=== PATIENT | male | born 1945 | race Caucasian/White ===

== ENCOUNTER 2020-07-08 10:10 | Observation (INO) ==
--- NOTE | 2020-06-13 13:55 | PAT Medication Instructions ---
Medication Instructions Date of Service June 13, 2020 Home Medications amlodipine 2.5 mg tablet 2.5 mg PO QAM aspirin 81 mg tablet,delayed release 81 mg PO QAM atorvastatin 20 mg tablet 20 mg PO BID folic acid 20 mg capsule 20 mg PO QAM furosemide 20 mg tablet 20 mg PO QAM methotrexate sodium 2.5 mg tablet 15 mg PO WK metoprolol tartrate 50 mg tablet 50 mg PO BID citalopram 10 mg PO QAM pxereyja-njf-DK-lycopen-lutein [Centrum Silver Men] 1 tab PO QAM vitamins A,C,N-ycvb-jwcisl [PreserVision AREDS] 1 cap PO BID warfarin 10 - 15 mg PO UD ASK your prescriber and surgeon methotrexate sodium 2.5 mg tablet 15 mg PO WK warfarin 10 - 15 mg PO UD STOP taking 2 weeks before surgery If surgery is within 2 weeks, stop taking as soon as possible. cjjlqfgq-gjj-CT-lycopen-lutein [Centrum Silver Men] 1 tab PO QAM vitamins A,C,C-hjwm-kcavhd [PreserVision AREDS] 1 cap PO BID DO NOT take the morning of surgery folic acid 20 mg capsule 20 mg PO QAM furosemide 20 mg tablet 20 mg PO QAM Take morning of surgery With a small sip of water, OTHERWISE NOTHING TO EAT OR DRINK AFTER MIDNIGHT: amlodipine 2.5 mg tablet 2.5 mg PO QAM aspirin 81 mg tablet,delayed release 81 mg PO QAM atorvastatin 20 mg tablet 20 mg PO BID metoprolol tartrate 50 mg tablet 50 mg PO BID citalopram 10 mg PO QAM Take evening before surgery atorvastatin 20 mg tablet 20 mg PO BID metoprolol tartrate 50 mg tablet 50 mg PO BID Other Notes If you have any questions please call us at [phone] or [phone] or [phone] or [phone]
--- NOTE | 2020-06-15 11:01 | Anesthesiology Consultation ---
Date of Service June 15, 2020 Assessment & Plan (1) Encounter for pre-operative examination: COVID Status: As of 06/15 assessment, patient denies travel to endemic area, known exposure/sick contacts, or symptoms of COVID19. Patient instructed that they and their household members must follow strict social distancing guidelines, wear a mask in public and avoid travel/events/gatherings for 14 days prior to surgery. Preoperative COVID19 testing to be completed prior to surgery per surgeon's arrangements. Patient made aware to self-isolate as much as possible between COVID testing and surgery. Pt has had one vaccine and is to receive the second dose 06/23. Cardiology clearance 06/03/2020: "No CHF or symptoms to suggest angina. He is an intermediate risk for OR and will need bridged with Lovenox due to his mechanical MV. He will need postop warfarin, no DOAC, due to mechanical MV. Suggest to hold Coumadin 5 days before OR. On day 3 begin Lovenox 10 mm subQ twice daily and stop the night before surgery. Resume warfarin after ORN if able bridged with Lovenox for 3 days after or while restarting warfarin." Chart Review Chart Review: Acceptable Risk for Surgery and Patient seen in Pre Admission Testing Teaching & Discussion Instructed NPO after midnight before surgery, except medications with 15 cc of water. Medication instructions provided according to the PAT guidelines. Warfarin and methotrexate instructions per prescribers. History Surgery Operation Date: 07/08/20 07:15 Proposed Procedures p Right Total Knee Arthroplasty - Ean Anne MD Height/Weight Height: 6 ft 1 in Weight: 122.5 kg Allergies Allergy/AdvReac Type Severity Reaction Status Date / Time apixaban [From Eliquis] AdvReac Unknown not to Verified 06/07/20 13:59 take per drill press operator - only to take warfarin rivaroxaban [From Xarelto] AdvReac Unknown not to Verified 06/07/20 13:59 take per drill press operator - only to take warfarin Medications Home Medications Medication Instructions Recorded Confirmed Last Taken amlodipine 2.5 mg tablet 2.5 mg PO QAM 03/03/20 06/07/20 Unknown aspirin 81 mg tablet,delayed 81 mg PO QAM 03/03/20 06/07/20 Unknown release atorvastatin 20 mg tablet 20 mg PO BID 03/03/20 06/07/20 Unknown folic acid 20 mg capsule 20 mg PO QAM 03/03/20 06/07/20 Unknown furosemide 20 mg tablet 20 mg PO QAM 03/03/20 06/07/20 Unknown methotrexate sodium 2.5 mg tablet 15 mg PO WK 03/03/20 06/07/20 Unknown metoprolol tartrate 50 mg tablet 50 mg PO BID 03/03/20 06/07/20 Unknown citalopram 10 mg PO QAM 06/07/20 06/07/20 Unknown qdjbtoaj-wga-XF-lycopen-lutein 1 tab PO QAM 06/07/20 06/07/20 Unknown [Centrum Silver Men] vitamins A,C,J-hnev-ltiyeu 1 cap PO BID 06/07/20 06/07/20 Unknown [PreserVision AREDS] warfarin 10 - 15 mg PO UD 06/07/20 06/07/20 Unknown Wheeled Walker #1 ea 06/15/20 06/15/20 Unknown Past Medical History Medical History (Updated 06/15/20 @ 16:17 by William Sharpe) Atrial fibrillation hx, s/p cardioversion x 7 per patient, Maze procedure, and mini-maze procedure. Now with PPM. Chronic steroid use for psoriatic arthritis High blood pressure High cholesterol History of cardioversion x7 Mechanical heart valve present Mitral valve repair with ring first in 2012. Subsequently replaced with mechanical valve in 2013 when ring failed. Follows with Dr. Baptiste On anticoagulant therapy Pacemaker medtronic device. Per cardio note placed for complete heart block. Psoriatic arthritis Right knee DJD Sleep apnea cpap -- very compliant SOB (shortness of breath) on exertion Past Family History Family History Other No family history of adverse response to anesthesia Past Surgical History Surgical History (Updated 06/15/20 @ 16:17 by William Sharpe) H/O maze procedure (~2006) [facility] History of cardiac cath (~2019) [place] no stents History of cholecystectomy History of colonoscopy History of open heart surgery (~2013) x2. Mitral valve repair with ring first in 2012. Subsequently replaced with mechanical valve in 2013 when ring failed. History of tonsillectomy S/P placement of cardiac pacemaker initially placed in 2003 for symptomatic a.fib. replaced lead in 2008. Past Anesthesia History No Family Hx of Anesthesia Complications Ileus after one of his heart surgeries, relieved with NG tube placement x 3 days post op. History of PONV No Hx of PONV and No Hx of Motion Sickness Social History Smoking Status: Former smoker tobacco type: cigarettes Do You Dip or Chew Tobacco: No Smoking End Date: 1967 Hx Alcohol Use: Yes alcohol intake frequency: holidays/special occasions only Hx Substance Use: No substance use type: does not use Review of Systems Pt denies any recent chest pain, shortness of breath, palpitations, cough, fever, URI, or uncontrolled acid reflux. +joint pain Physical Exam Vital Signs BP: 118/72 P: 61bpm SPO2: 97% RA T: 98.1 F R: 16 ENMT Mouth: + dental restorations (crowns); no chipped teeth and no loose teeth Thyromental Distance: > or= 3.5 Finger Breadths Mallampati Class: II Neck + short neck and + limited neck extension Respiratory normal respiratory effort, lungs clear to auscultation Cardiovascular RRR, no murmur, no edema Heart Sounds: + click (over mitral area) Vessels: no carotid bruit Testing Laboratory Results 06/15/20 11:11 06/15/20 11:11 PT 24.6 Seconds (9.0-12.0) H 06/15/20 11:11 INR 2.6 (0.9-1.1) H 06/15/20 11:11 APTT 39.6 Seconds (21.0-31.0) H 06/15/20 11:11 Blood Type A Positive 06/15/20 11:11 Antibody Screen NEGATIVE 06/15/20 11:11 Electrocardiogram Date: 06/03/20 A. fib at 63 bpm with demand RIVER CAPTAIN. Chest X-Ray Date: 06/15/20 FINDINGS: Cardiac silhouette is enlarged. Prior median sternotomy with cardiac valvular prosthesis. Left subclavian pacer. Additional leads overlying the left heart border. Calcified plaque the thoracic aorta. No pneumothorax, pleural effusion, airspace consolidation or overt pulmonary edema. Degenerative changes of the spine. Cholecystectomy. IMPRESSION: No acute process. Echocardiogram Date: 01/27/20 EF: 50-55% Mild LVH. Normal wall motion. Grossly normal LV systolic function. Mitral valve replacement, mild aortic sufficiency, and moderate tricuspid regurgitation. Mild to moderate pulmonary hypertension. Diastolic function is indeterminate due to mitral valve repair/replacement. Pacemaker wires seen in the right-sided chambers. Cardiac Catheterization Date: 07/23/19 Elevated left-sided filling pressures. No aortic stenosis. 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 Obstructive disease in a small diagon al that is not a suitable target for intervention. Plan: Diet, exercise, lifestyle modifications. Maximize medical therapy for secondary prevention and antianginal therapy. Other Testing Pacemaker Interrogation 12/23/19 Model: Medtronic Implantation date: 04/22/08 Indication: Battery/Longevity: 6 yrs Mode: VVIR Pacin% RV paced Summary: 90-day remote follow-up. No events. This is a normal implantable pacemaker remote follow-up. No significant device related abnormalities were noted.
[2020-06-15 11:28] LABS: Basophils # (auto) 0.02 K/uL (0-0.2); Basophils % (auto) 0.4 %; Eosinophils # (auto) 0.11 K/uL (0-0.5); Eosinophils % (auto) 2.3 %; Hematocrit (blood only) 39.2 % (42-52); Hemoglobin 13.2 g/dL (14.0-18.0); Lymphocytes # (auto) 0.84 K/uL (1.2-3.4); Lymphocytes % (auto) 17.6 %; Mean Corpuscular Hemoglobin 32.5 pg (25-34); Mean Corpuscular Hgb Conc 33.7 g/dL (32-36); Mean Corpuscular Volume 96.6 fL (80-100); Mean Platelet Volume 10.7 fL (7.4-10.4); Monocytes # (auto) 0.45 K/uL (0.11-0.59); Monocytes % (auto) 9.5 %; Neutrophils # (auto) 3.34 K/uL (1.4-6.5); Neutrophils % (auto) 70.2 %; Platelet Count 182 K/uL (130-400); RDW Coefficient of Variation 14.5 % (11.5-14.5); RDW Standard Deviation 51.1 fL (36.4-46.3); Red Blood Count 4.06 M/uL (4.7-6.1); White Blood Count 4.76 K/uL (4.8-10.8)
[2020-06-15 11:41] LABS: INR 2.6 (0.9-1.1); Partial Thromboplastin Ratio 1.5; Partial Thromboplastin Time 39.6 Seconds (21.0-31.0); Prothrombin Time 24.6 Seconds (9.0-12.0)
--- NOTE | 2020-06-15 11:49 | XRay Report ---
XR chest Pre-admission PA/Lat HISTORY: 74 years-old Male pat chronic degenerative joint disease COMPARISON: None TECHNIQUE: PA and lateral views of the chest FINDINGS: Cardiac silhouette is enlarged. Prior median sternotomy with cardiac valvular prosthesis. Left subcla vian pacer. Additional leads overlying the left heart border. Calcified plaque the thoracic aorta. No pneumothorax, pleural effusion, airspace consolidation or overt pulmonary edema. Degenerative change s of the spine. Cholecystectomy. IMPRESSION: No acute process. ACT 112: Negative or not required by law. The above report was generated using voice recognition software. It may contain grammatical, syntax o r spelling errors. Electronically signed by: Pako Lowe M.D. 06/15/2020 11:48 AM
[2020-06-15 13:27] LABS: BUN Creatinine Ratio 25.2 (10-20); Calcium 9.4 mg/dl (8.5-10.1); Creatinine Clr Calc Pharmacy 91.2 ml/min; Est GFR (African American) 89.3; Potassium 4.4 mmol/L (3.5-5.1)
[~2020-07-08 10:10] MED LIST: ACETAMINOPHEN 500 MG TAB PO SCH; BUPIVACAINE 0.5 % 5 MG/1 ML PF 10ML VIAL ONE; BUPIVACAINE LIPOSOME/PF 266 MG, BUPIVACAINE/EPINEPHRINE 50 ML, SODIUM CHLORIDE 0.9% PF ... INFIL SCH; EPINEPHrine INJ 1 MG/ML AMP ONE; FAMOTIDINE 20 MG TAB PO SCH; GABAPENTIN 300 MG CAP PO SCH; LR 60ML/HR IV SCH; METOCLOPRAMIDE HCL 10 MG TABLET PO SCH; ROPIVACAINE 0.5% 5 MG/ML 30 ML VIAL ONE; TRANEXAMIC ACID 1,000 MG **IV Intra-op IV SCH
[2020-07-08] MEDS: LR 500ML BOLUS, THEN 15ML/HR IV SCH ×2 (11:14→12:56)
--- NOTE | 2020-07-08 11:41 | History & Physical Bridge Note ---
Date of Service July 08, 2020 History & Physical Bridge Note I have examined the patient, reviewed the History & Physical and in the interval since the performance of the History & Physical I have noted the following changes of clinical significance: no changes noted
[2020-07-08 11:53] LABS: INR 1.1 (0.9-1.1); Partial Thromboplastin Ratio 1.1; Partial Thromboplastin Time 29.3 Seconds (21.0-31.0); Prothrombin Time 11.1 Seconds (9.0-12.0)
[2020-07-08] MEDS ORDERED: HYDROmorphone INJ 1 MG/ML SYRINGE IV PRN (12:12)
[2020-07-08] MEDS ORDERED: fentaNYL citrate PF 100 MCG/2 ML VIAL IV PRN (12:12)
[2020-07-08] MEDS ORDERED: ONDANSETRON INJ 2 MG/ML 2 ML VIAL IV PRN ×2 (12:12→17:33)
[2020-07-08] MEDS ORDERED: ATROPINE SULFATE 0.1 MG/ML 10ML SYR IV PRN (12:12)
[2020-07-08] MEDS ORDERED: ePHEDrine sulfate 50 MG/ML AMP IV PRN (12:12)
[2020-07-08] MEDS ORDERED: MEPERIDINE HCL 25 MG/ML CARP/VIAL IV PRN (12:12)
[2020-07-08] MEDS ORDERED: PHENYLEPHRINE 100MCG/ML 5ML SYR IV PRN (12:12)
[2020-07-08] MEDS ORDERED: LABETALOL HCL IV 5 MG/ML 20ML IV PRN (12:12)
[2020-07-08] MEDS ORDERED: MIDAZOLAM HCL 1 MG/ML 2ML VIAL ONE (13:45)
[2020-07-08] MEDS ORDERED: fentaNYL citrate PF 100 MCG/2 ML VIAL ONE (13:45)
[2020-07-08] MEDS ORDERED: BUPIVACAINE 0.25% PF 30 ML VIAL ONE ×2 (14:02→14:04)
[2020-07-08] MEDS ORDERED: EPINEPHrine INJ 1 MG/ML AMP ONE (14:02)
[2020-07-08] MEDS ORDERED: BUPIVACAINE LIPOSOME 1.3% 266 MG/20 ML VIAL ONE (14:02)
[2020-07-08] MEDS ORDERED: SODIUM CHLORIDE 0.9% PF 50 ML VIAL ONE (14:02)
[2020-07-08] MEDS ORDERED: LIDOCAINE 2% 2 ML VIAL/AMP(20MG/ML) INFIL ONE (14:27)
[2020-07-08] MEDS ORDERED: ONDANSETRON INJ 2 MG/ML 2 ML VIAL ONE (14:27)
[2020-07-08] MEDS ORDERED: PROPOFOL IV EMULSION 10 MG/ML 20 ML VIAL IV ONE ×2 (14:27→15:36)
--- NOTE | 2020-07-08 16:14 | Operative Report ---
Post Operative Report Pre & Post Diagnosis Operation Date: 07/08/20 12:30 Pre-Op Diagnosis: Right Knee Degenerative Joint Disease Post-Op Diagnosis: Right Knee Degenerative Joint Disease I identified the patient and participated in the time-out.: Yes Procedure Operation Date: 07/08/20 12:30 Actual Procedures p Right Total Knee Arthroplasty(Right) - Ean Anne MD Surgeon Ean Anne MD Scientific Associate FEI Navarrete Estimated Blood Loss 50 Findings Consistent with Post-Op Diagnosis Fluids 1600 cc Specimens Right knee sent for pathology Anesthesia Type Spinal MAC Complications none Disposition Accompanied Patient To Recovery: No Disposition: Recovery Room Indications Patient is a 74-year-old gentleman said a long history of right knee pain disc omfort describes gotten worse over time. He has been through extensive conservative treatment. X-rays show advanced lateral compartment DJD. He elected proceed with surgical treatment. Description of Procedure Operative implants consist of: 1 Biomet Vanguard size 72.5 right posterior stabilized femoral component. 2. Biomet size 79 tibial tray. 3. 10 mm posterior stabilized polyethylene insert. 4. 31 x 8 all polypatella. The patient was taken the operating room, identified, placed on the operating table supine position protectors were properly padded. IV antibiotics 5 by anesthesia team. A spinal anesthetic and abductor canal block had provided holding area. Isfuentes catheter was placed in sterile fashion. Right thigh tip was then placed in the right lower extremities and prepped draped in usual sterile fashion. The right leg was elevated and exsanguinated with use of an Esmarch interspace at 3 mmHg. Anterior approach to the right knee was then performed through longitudinal incision centered over the patella. Sharp dissection was carried through subcutaneous this down to the level extensor mechanism. A medial parapatellar arthrotomy incision was made. Some subperiosteal dissection was carried out medially but the fat pad was dissected from each patella tendon. Lateral patellofemoral ligament was released. Patella was subluxated laterally. The knee was flexed. The osteophytes were taken off distal femur P the ACL and PCL were then released from distal femur the tibia subluxated anteriorly. The external tibial alignment jig was then placed in the interface the tibia and adjusted 14 mm medially. Proximal tibial cut was made remove about 5 mm of bone from the medial side. He did have a pretty significant defect laterally. The tibia was then sized to a size 79. Attention then drawn the femur. The distal femur was entered with a sharp drop with intramedullary canal was suction. A right 5 degree valgus cutting guide was placed. The distal femoral cutting block was pinned in place. Distal femoral cut was made to take an additional 5 mm of bone off distal femur due to his flexion contracture. The femur was then sized to a size 72.5. The 8 cutting block was pinned parallel to the epicondylar axis which was 6 degrees of external rotation. Anterior cut, anterior chamfer, posterior cut, posterior chamfer cuts were made. The box cutting guide was placed in just slight lateral box cut was made. The knee was flexed. The remnants of the medial lateral meniscus were excised. The popliteus was released in order to equalize the flexion gap. Did bring the knee on extension and did not band release in order to equalize extension gap. A trial femoral component was placed. Tibial tray was pinned in maximum external rotation and the drill and stem punch were used to create defect in proximal tibia for the tibial tray. The knee was then trialed and the 10 mm insert fit most appropriately. Attention drawn the patella. The patella was cleaned of all soft tissues. Patella thickness measured 23 mm in thickness was cut down to 14. Size a size 31 patella. The lug holes were drilled for the 31 patella. The lateral osteophyte is moved. Patella button was placed. Knee was taken through range of motion patella tracked nicely with no thumbs test. Attention drawn toward placing the permanent components. All trial components were removed. Bone plug was placed in the distal femur limit blood loss. L batch Palacos G cement was mixed. A Biomet Vanguard size 72.5 right posterior stabilized femoral component, size 79 tibial tray, 10 mm posterior stabilized polyethylene insert, and a 31 x 8 all polypatella then cemented in place. The knee was brought out in full extension until cement hardened. Final cement check was then performed. Pericapsular tissues were injected with total of 100 cc of combination of 20 cc of Exparel, 30 cc normal saline, 50 cc of quarter percent Marcaine with epinephrine. Patient did receive 1 g tranexamic acid. The tourniquet was let down for final tourniquet time of 66 minutes. Hemostasis reduced electrocautery. Extensor mechanism closed with combination 1 PDS suture and 1 Vicryl suture in [id number] fashion. Extensor mechanism checked and found to be intact and the subcutaneous tissue then closed with 2 Dexon suture in a buried interrupted fashion skin was closed skin jaquelin. Leg was then cleaned and dried and sterile dressing both Xeroform, 4 x 4's, sterile cast padding, Salvador bandage were applied. Patient then transferred to the recovery in stable condition. Patient tolerated the procedure well and there were no complications. Bi Navarrete, my physician licensed sales assistant, was present for the entire procedure. His assistance was essential and required for appropriate patient positioning, prepping and draping, surgical exposure, performing the technical details of the operation, placement the implants, closure of the wound, and placement of the sterile bandage. I attest to the content of the Intraoperative Record and any orders documented therein. Any exceptions are noted below.
--- NOTE | 2020-07-08 16:51 | XRay Report ---
XR knee RT 1 or 2V routine HISTORY: 74 years-old Male Surgical Post Op right knee total joint arthroplasty COMPARISON: Knee radiographs 03/03/2020 TECHNIQUE: 2 views the right knee FINDINGS: Right knee total joint arthroplasty with patellar resurfacing. Anterior midline skin jaquelin are note d along with expected postsurgical soft tissue swelling and deep tissue air. No acute fracture, malal ignment or opaque foreign body. IMPRESSION: Right knee total joint arthroplasty with expected postoperative changes. ACT 112: Negative or not required by law. The above report was generated using voice recognition software. It may contain grammatical, syntax o r spelling errors. Electronically signed by: Tripp Lowe M.D. 07/08/2020 4:49 PM
--- NOTE | 2020-07-08 16:57 | Anesthesiology Progress Note ---
Date of Service July 08, 2020 Anesthesia Post Procedure Vital Signs Vital Signs: Temp Pulse Pulse Resp BP Pulse Ox 07/08/20 16:50 36.3 C L 60 18 105/67 95 07/08/20 16:40 60 18 103/71 97 07/08/20 16:30 60 14 109/63 97 07/08/20 16:20 60 16 107/58 L 98 07/08/20 16:18 36.5 C 69 15 105/63 98 07/08/20 10:53 37.2 C 61 20 126/84 98 Transfer of Care Handoff Completed per policy Notes Mental Status: alert / awake / arousable Patient Amnestic to Procedure: Yes Nausea / Vomiting: adequately controlled Pain: adequately controlled Airway Patency, RR, SpO2: stable & adequate BP & HR: stable & adequate Hydration State: stable & adequate Neuraxial Anesthesia: was administered and sensory block is resolving Anesthetic Complications: no major complications apparent and Pt Satisfied with anesthetic care
[2020-07-08] MEDS ORDERED: traMADol HCL 50 MG TABLET PO PRN (17:33)
[2020-07-08] MEDS ORDERED: MAGNESIUM HYDROXIDE SUSP 30 ML UDC PO PRN (17:33)
[2020-07-08] MEDS ORDERED: bisacodyL 10 MG SUPP PR PRN (17:33)
[2020-07-08] MEDS ORDERED: ALUMINUM/MAGNESIUM SUSP 30 ML UDC PO PRN (17:33)
[2020-07-08] MEDS ORDERED: HYDROmorphone INJ 0.5 MG/0.5 ML SYR IV PRN (17:33)
[2020-07-08] MEDS ORDERED: TAMSULOSIN HCL 0.4 MG CAP PO PRN (17:33)
[2020-07-08] MEDS ORDERED: METOCLOPRAMIDE HCL INJ 5 MG/ML 2 ML VIAL IV PRN (17:33)
[2020-07-08] MEDS ORDERED: NALOXONE HCL 0.4 MG/1 ML VIAL/CARP IV PRN (17:33)
[2020-07-08] MEDS ORDERED: WARFARIN SOD 10 MG TAB PO ONE (18:30)
[2020-07-08] MEDS ORDERED: WARFARIN SOD 3 MG TAB PO ONE (18:30)
[2020-07-08] MEDS ORDERED: WARFARIN SOD 4 MG TAB PO ONE (18:30)
[2020-07-08] MEDS: FERROUS GLUCONATE 324 MG TAB PO SCH (19:08)
[2020-07-08] MEDS: ASCORBIC ACID 500 MG TAB PO SCH (19:09)
[2020-07-08] MEDS: SODIUM CHLORIDE 0.9% 1,000 ML IV SCH (19:14)
[2020-07-08] MEDS: KETOROLAC TROMETHAMINE 15 MG/ML VIAL IV SCH (19:52)
[2020-07-08] MEDS: ceFAZolin 2000MG 2,000 MG/15 ML SYR IV SCH (19:52)
[2020-07-08] MEDS: ATORVASTATIN 20 MG TAB PO SCH (20:01)
[2020-07-08] MEDS: DOCUSATE SODIUM 100 MG CAP PO SCH (20:02)
[2020-07-08] MEDS: METOPROLOL TARTRATE 50 MG TAB PO SCH (20:02)
[2020-07-08] MEDS: SENNA 8.6 MG TAB PO SCH (20:03)
[2020-07-08] MEDS: ACETAMINOPHEN 500 MG TAB PO SCH (21:43)
[2020-07-08] MEDS: PROSOURCE NO CARB 30 ML/PKT PO SCH (21:43)
[2020-07-08] MEDS ORDERED: TRANEXAMIC ACID / 0.7% NACL 1,000 MG/100 ML BAG IV SCH (22:15)
[2020-07-09] MEDS: KETOROLAC TROMETHAMINE 15 MG/ML VIAL IV SCH ×3 (01:10→17:32)
[2020-07-09] MEDS: SODIUM CHLORIDE 0.9% 1,000 ML IV SCH (01:10)
[2020-07-09] MEDS: ceFAZolin 2000MG 2,000 MG/15 ML SYR IV SCH (03:15)
[2020-07-09] MEDS: ACETAMINOPHEN 500 MG TAB PO SCH ×3 (06:02→20:45)
[2020-07-09] MEDS ORDERED: dexAMETHasone 10 MG in SYRINGE 0 ML IV SCH (08:00)
--- NOTE | 2020-07-09 08:51 | Progress Notes ---
DATE: 07/09/2020 SUBJECTIVE: A 74-year-old gentleman postop day 1 from a right knee replacement. He is doing pretty well. Having some pain, but nothing out of the ordinary. Very manageable. No chest pain or shortness of breath. Not feeling dizzy or lightheaded. OBJECTIVE: VITAL SIGNS: Temperature 37.4. Vital signs stable. GENERAL: Shows a pleasant elderly male. He is sitting up in his bedside chair, looks pretty comfortable. LUNGS: Clear to auscultation. HEART: Has a regular rate and rhythm. ABDOMEN: Soft, nontender, nondistended. EXTREMITIES: Grossly neurovascularly intact except as follows: Examination of the right leg reveals the dressing to be clean, dry, and intact. He can dorsiflex and plantarflex his foot appropriately. He is neurologically intact. LABORATORY DATA: Labs are pending. ASSESSMENT: A 74-year-old gentleman postop day 1 from a right knee replacement, doing pretty well. His pain is controlled. He is neurologically intact. PLAN: 1. DVT prophylaxis including thigh-high TEDs, SCDs, and we started him back on his Coumadin with a loading dose yesterday. We will continue Coumadin and supplement with Lovenox low dose starting this afternoon. It will be at a prophylactic dose until his INR is improved. 2. PT/OT. He can weight bear as tolerated. Right total knee protocol. 3. Pain control, doing okay with current pain regimen. 4. Disposition: He is planning to be discharged to home with some home health eventually. We are going to keep him in the hospital today, work on his anticoagulation and therapy. Likely discharge tomorrow.
[2020-07-09] MEDS: amLODIPine BESYLATE 5 MG TAB PO SCH (08:56)
[2020-07-09] MEDS: ASPIRIN 81 MG ECTAB PO SCH (08:56)
[2020-07-09] MEDS: ASCORBIC ACID 500 MG TAB PO SCH ×2 (08:57→17:34)
[2020-07-09] MEDS: FUROSEMIDE 20 MG TAB PO SCH (08:57)
[2020-07-09] MEDS: FERROUS GLUCONATE 324 MG TAB PO SCH ×2 (08:57→17:34)
[2020-07-09] MEDS: ATORVASTATIN 20 MG TAB PO SCH ×2 (08:58→20:43)
[2020-07-09] MEDS: DOCUSATE SODIUM 100 MG CAP PO SCH ×2 (08:58→20:43)
[2020-07-09] MEDS: METOPROLOL TARTRATE 50 MG TAB PO SCH ×2 (08:58→20:43)
[2020-07-09] MEDS: CITALOPRAM 20 MG TAB PO SCH (08:59)
[2020-07-09] MEDS: MULTIVITAMIN TAB PO SCH (08:59)
[2020-07-09] MEDS ORDERED: metHOTREXate sodium 2.5 MG TAB PO SCH (09:00)
[2020-07-09] MEDS: CEROVITE ADV FORMULA TAB PO SCH (09:01)
[2020-07-09] MEDS: PROSOURCE NO CARB 30 ML/PKT PO SCH ×3 (09:02→20:44)
[2020-07-09 09:16] LABS: Hematocrit (blood only) 36.3 % (42-52); Hemoglobin 11.6 g/dL (14.0-18.0); Mean Corpuscular Hemoglobin 31.9 pg (25-34); Mean Corpuscular Volume 99.7 fL (80-100); Mean Platelet Volume 10.6 fL (7.4-10.4); Platelet Count 131 K/uL (130-400); RDW Coefficient of Variation 14.3 % (11.5-14.5); RDW Standard Deviation 51.9 fL (36.4-46.3); Red Blood Count 3.64 M/uL (4.7-6.1); White Blood Count 5.59 K/uL (4.8-10.8)
[2020-07-09 09:33] LABS: BUN Creatinine Ratio 19.6 (10-20); Calcium 8.8 mg/dl (8.5-10.1); Creatinine Clr Calc Pharmacy 90.5 ml/min; Est GFR (African American) 89.3 ml/min; Potassium 4.2 mmol/L (3.5-5.1)
--- NOTE | 2020-07-09 10:13 | Anesthesiology Progress Note ---
Date of Service July 09, 2020 Anesthesia Post Procedure Vital Signs Vital Signs: Temp Pulse Pulse Resp BP Pulse Ox 07/09/20 07:12 37.4 C 61 16 131/73 93 07/09/20 03:45 37.4 C 62 20 136/75 96 07/08/20 22:31 36.3 C L 62 20 130/78 99 07/08/20 19:17 36.3 C L 63 20 128/78 96 07/08/20 18:34 36.3 C L 60 16 133/87 98 07/08/20 18:05 36.3 C L 60 16 132/83 96 07/08/20 17:35 36.2 C L 60 16 121/76 93 07/08/20 17:15 60 18 119/67 94 07/08/20 17:00 60 14 112/69 94 07/08/20 16:50 36.3 C L 60 18 105/67 95 07/08/20 16:40 60 18 103/71 97 07/08/20 16:30 60 14 109/63 97 07/08/20 16:20 60 16 107/58 L 98 07/08/20 16:18 36.5 C 69 15 105/63 98 07/08/20 10:53 37.2 C 61 20 126/84 98 Pain Intensity Right Knee: Pain Intensity: 3 Transfer of Care Handoff Completed per policy Notes Mental Status: alert / awake / arousable and participated in evaluation Nausea / Vomiting: adequately controlled Pain: adequately controlled Airway Patency, RR, SpO2: stable & adequate BP & HR: stable & adequate Hydration State: stable & adequate Neuraxial Anesthesia: was administered and sensory block resolved Anesthetic Complications: no major complications apparent and Pt Satisfied with anesthetic care Notes: Pt OOB to chair and bathroom
[2020-07-09] MEDS ORDERED: WARFARIN SOD 7.5 MG TAB PO SCH (16:00)
[2020-07-09] MEDS: ENOXAPARIN INJ 30 MG/0.3 ML SYR SQ SCH (17:35)
[2020-07-09] MEDS: SENNA 8.6 MG TAB PO SCH (20:44)
[2020-07-10] MEDS: ENOXAPARIN INJ 30 MG/0.3 ML SYR SQ SCH ×2 (05:56→13:30)
[2020-07-10] MEDS: ACETAMINOPHEN 500 MG TAB PO SCH ×2 (05:56→13:32)
[2020-07-10] MEDS: FERROUS GLUCONATE 324 MG TAB PO SCH (08:27)
[2020-07-10] MEDS: ASCORBIC ACID 500 MG TAB PO SCH (08:27)
[2020-07-10] MEDS: PROSOURCE NO CARB 30 ML/PKT PO SCH (08:27)
[2020-07-10] MEDS: ASPIRIN 81 MG ECTAB PO SCH (08:27)
[2020-07-10] MEDS: FUROSEMIDE 20 MG TAB PO SCH (08:27)
[2020-07-10] MEDS: MULTIVITAMIN TAB PO SCH (08:27)
[2020-07-10] MEDS: DOCUSATE SODIUM 100 MG CAP PO SCH (08:27)
[2020-07-10] MEDS: CITALOPRAM 20 MG TAB PO SCH (08:27)
[2020-07-10] MEDS: METOPROLOL TARTRATE 50 MG TAB PO SCH (08:27)
[2020-07-10] MEDS: CEROVITE ADV FORMULA TAB PO SCH (08:27)
[2020-07-10] MEDS: amLODIPine BESYLATE 5 MG TAB PO SCH (08:28)
[2020-07-10] MEDS: ATORVASTATIN 20 MG TAB PO SCH (08:28)
[2020-07-10 08:51] LABS: INR 1.6 (0.9-1.1); Prothrombin Time 16.1 Seconds (9.0-12.0)
--- NOTE | 2020-07-10 09:17 | Progress Notes ---
DATE: 07/10/2020 SUBJECTIVE: A 74-year-old gentleman postop day 2 from right knee replacement. He is doing pretty well. Pain is controlled. No chest pain or shortness of breath. Not feeling dizzy or lightheaded. OBJECTIVE: VITAL SIGNS: Temperature 36.7. Vital signs stable. GENERAL: Shows a pleasant, middle-aged male. He is sitting up in bed, looks quite comfortable this morning. EXTREMITIES: Examination of the right leg reveals the leg to be well aligned. Dressing is clean, dry, and intact. He can dorsiflex and plantarflex his foot appropriately. He is neurologically intact. LABORATORY DATA: His INR is pending. ASSESSMENT: A 74-year-old gentleman, postoperative day 2 from right knee replacement, doing pretty well. His pain is controlled. He is neurologically intact. PLAN: 1. DVT prophylaxis including thigh-high TEDs, SCDs, and back on his Coumadin. We are waiting for his INR for additional dosing and recommendations as far as Coumadin and Lovenox upon discharge. 2. PT/OT. Weight bear as tolerated. Right total knee protocol. 3. Pain control, doing well with current pain regimen. 4. Disposition: Plan to discharge to home with some home health later today.
[2020-07-10] MEDS ORDERED: WARFARIN SOD 6 MG TAB PO ONE (16:00)
--- NOTE | 2020-07-15 06:46 | Discharge Summary ---
Date of Service July 15, 2020 Discharge Data Procedures Performed Operation Date: 07/08/20 12:30 Actual Procedures p Right Total Knee Arthroplasty(Right) - Ean Anne MD Hospital Course (1) Status post total right knee replacement: This patient is a 74 year old admitted on 07/08/20 and underwent total knee arthroplasty. He tolerated the procedure well and there were no complications. Transferred to the PACU post op and later to the orthopedic floor for further care. He was given ancef for antibiotic prophylaxis. He was also given HENRRY stockings, SCDs, and coumadin/lovenox for DVT prophylaxis. Hemoglobin, hematocrit, and vital signs were monitored during his hospital stay and remained stable. Did not require any blood transfusions. There were no complications du ring his hospital stay. By post op day #2 the patient was tolerating a regular diet, pain was reasonably controlled with oral pain medicine, and he was participating in physical therapy. On post op day #2 the patient was discharged home and set up with home health care. He was given printed discharge instructions including prescriptions for extra strength tylenol and tramadol. Continue physical therapy, weight bearing as tolerated. Continue HENRRY stockings. Follow up approximately 2 weeks post op or sooner if there are problems or concerns. Coding Level of Care Code None Diagnoses Status post total right knee replacement Z96.651
== END 2020-07-10 14:16 | disposition home health service (06) ==
LOC: 3W 10:10 → PAT 10:10